=== PATIENT | female | born 1975 | race Caucasian/White ===

== ENCOUNTER 2023-03-11 22:47 | Emergency (ER) | payer BC, SELFPAY ==
[2023-03-11 22:48] VITALS: BP 148/95; PULSE 125; RESP 14; TEMP 36.4; O2SAT 100
[2023-03-11 22:52] LABS: Glucose Point of Care 373 mg/dl (65-105)
--- NOTE | 2023-03-11 22:54 | ECG_ITS ---
Measurements Intervals [place] Rate: 120 P: 64 SD: 153 QRS: 31 QRSD: 82 T: 51 QT: 321 QTc: 453 Interpretive Statements SINUS TACHYCARDIA BASELINE ARTIFACT- I, III, AVL ABNORMAL ECG NO PREVIOUS ECG AVAILABLE FOR COMPARISON Electronically Signed On 03-12-2023 6:52:35 CDT by Riky Smith D.O.
[2023-03-11 23:01] LABS: Basophils Absolute Auto 0.1 K/mm3 (0.0-0.1); Basophils Percent Auto 0.6 % (0.2-1.2); Eosinophils Absolute Auto 0.2 K/mm3 (0-0.3); Eosinophils Percent Auto 1.6 % (0-4.4); Hematocrit 41.6 % (37.0-47.0); Hemoglobin 14.4 g/dL (12.0-15.0); Immature Granulocyte Absolute 0.03 K/mm3 (0.00-0.031); Immature Granulocyte Percent A 0.3 % (0-0.5); Lymphocytes Absolute Auto 1.69 K/mm3 (0.9-3.2); Mean Corpuscular HGB Conc 34.6 g/dl (32-36); Mean Corpuscular Hemoglobin 29.6 pg (26-34); Mean Corpuscular Volume 85.4 fl (80-100); Mean Platelet Volume 10.2 fl (7.4-10.4); Monocytes Absolute Auto 0.5 K/mm3 (0.1-0.6); Monocytes Percent Auto 5.8 % (2.6-8.5); Neutrophils Absolute Auto 6.9 K/mm3 (1.3-6.7); Neutrophils Percent Auto 73.7 % (45.5-73.1); Platelet Count Result 185 k/mm3 (150-375); Red Blood Count 4.87 M/mm3 (4.2-5.4); Red Cell Distribution Width 11.7 % (11.5-14.5); White Blood Count 9.4 K/mm3 (4.5-10.0)
[2023-03-11 23:20] LABS: Alanine Aminotransferase 25 U/L (6-35); Albumin Level 4.7 g/dL (3.5-5.1); Alkaline Phosphatase 107 U/L (38-126); Anion Gap 13 mmol/L (8-16); Aspartate Amino Transferase 24 U/L (14-36); Bilirubin,Total 0.8 mg/dL (0.2-1.3); Blood Urea Nitrogen 17 mg/dL (7-17); Carbon Dioxide 19 mmol/L (22-30); Chloride 100 mmol/L (98-107); Estimated CRCL calculation 111 ml/min; Estimated Glomerular Filt Rate > 60; Glucose 384 mg/dL (65-110); Magnesium 1.9 mg/dL (1.6-2.3); Phosphorus 3.4 mg/dL (2.5-4.5); Potassium 3.8 mmol/L (3.4-5.0); Sodium 132 mmol/L (137-145)
[2023-03-11 23:21] LABS: Beta-Hydroxybutyrate/Acetoacetate 0.19 mmol/L (0.02-0.27)
[2023-03-11 23:51] VITALS: PULSE 123; RESP 15; O2SAT 100
[2023-03-12] VITALS (25 sets, daily range): BP systolic 95–137; BP diastolic 48–91; PULSE 91–121; RESP 12–30; TEMP 35.9; O2SAT 99–100
[2023-03-12 00:23] LABS: Glucose Point of Care 280 mg/dl (65-105)
[2023-03-12] MEDS: SODIUM CHLORIDE 0.9% IV 1,000 ML 999 ML IV CONT (00:39)
[2023-03-12] MEDS: INSULIN HUMAN REGULAR (*BKC) 100 UNITS/ML IV PUSH (00:46)
[2023-03-12] MEDS: POTASSIUM CHLORIDE 20 MEQ PACKET (FOR LIQUID) 40 MEQ PO (00:47)
--- NOTE | 2023-03-12 00:56 | ED.GENADULT ---
HPI - General Adult General Chief complaint: Recheck/Abnormal Lab/Rx Stated complaint: high blood sugar-out of medication Time Seen by Provider: 03/12/23 00:07 History of Present Illness HPI narrative: 47 year old female history of diabetes presented with hyperglycemia in the setting of running out of medications. Per patient, she has had trouble finding an appointment with her primary care provider to optimize her diabetes medications. She has been without her metformin for several days. She has been having increased thirs and urinary frequncy. Denied chest pain, shortness of breath, abdominal pain, dysuria, cough, sick contacts. Related Data Allergies Allergy/AdvReac Type Severity Reaction Status Date / Time No Known Allergies Allergy Unverified 05/07/15 13:40 Review of Systems Review of Systems: See HPI Exam Narrative: General: Alert, calm and cooperative, no acute distress, phonating, sitting comfortably during visit HEENT: Pupils equal round and reactive to light, extra ocular movements intact, no conjunctival injection, head atraumatic, neck supple without meningismus Cardiovascular: Regular rate and rhythm, no visible jugular venous distension Respiratory: Lungs clear to auscultation bilaterally, no wheezing/rales/rhonchi Abdominal: soft, non-tender, non-distended, no guarding, no rebound/peritoneal signs, no costovertebral tenderness to palpation Back: no midline tenderness to palpation, no step offs Extremities: No edema, palpable peripheral pulses, warm, well perfused, no tenderness to bilateral calves Neurological: Alert, moving all extremities symmetrically, ambulating without deficit Course Vital Signs Vital signs: Vital Signs Temperature 97.6 F 03/11/23 22:48 Pulse Rate 125 H 03/11/23 22:48 Respiratory Rate 14 03/11/23 22:48 Blood Pressure 148/95 H 03/11/23 22:48 Pulse Oximetry 100 03/11/23 22:48 Oxygen Delivery Room Air 03/11/23 22:48 Temperature 96.7 F L 03/12/23 00:30 Pulse Rate 95 03/12/23 03:45 Respiratory Rate 15 03/12/23 03:45 Blood Pressure 101/56 L 03/12/23 03:31 Pulse Oximetry 99 03/12/23 01:59 Oxygen Delivery Room Air 03/11/23 22:48 Medical Decision Making [facility] Narrative Medical decision making narrative: 47 year old female history of diabetes presented with hyperglycemia in the setting of running out of his diabetes medication. Physical exam benign, sitting in bed comfortably, abdomen soft and non tender, vitals stable. DKA considered, blood work and clincal presentation not consistent with this. History and exam suggestive of hyperglycemia. Patient given IV fluid hydration and insulin with improvement of symptoms. Blood work reviewed, noted to be unremarkable. Physical exam benign, vitals stable. The patient tolerated oral intake, is alert and oriented, speaking with clear speech, ambulated with steady gait, and has remained hemodynamically stable throughout the ED visit. Has close follow up with primary care provider. Metformin prescribed until she could see her primary care provider Areas of diagnostic uncertainty discussed and strict return precautions shared with patient; encouraged to return to the emergency department if symptoms returned or worsened. The patient is safe to be discharged with follow up, provided she abide by the verbalized and written instructions, to which the patient has expressed understanding. Vital Signs Vital Signs: Vital Signs Temperature 97.6 F 03/11/23 22:48 Pulse Rate 125 H 03/11/23 22:48 Respiratory Rate 14 03/11/23 22:48 Blood Pressure 148/95 H 03/11/23 22:48 Pulse Oximetry 100 03/11/23 22:48 Oxygen Delivery Room Air 03/11/23 22:48 Temperature 96.7 F L 03/12/23 00:30 Pulse Rate 95 03/12/23 03:45 Respiratory Rate 15 03/12/23 03:45 Blood Pressure 101/56 L 03/12/23 03:31 Pulse Oximetry 99 03/12/23 01:59 Oxygen Delivery Room Air 03/11/23 22:48 Lab Data 03/11/23 22:54
[2023-03-12] MEDS: LACTATED RINGERS 1,000 ML 999 ML (01:00)
[2023-03-12] MEDS: LACTATED RINGERS 1,000 ML 999 ML IV CONT (01:23)
[2023-03-12 01:33] LABS: Appearance Urine Clear (Clear); Bilirubin Urine Negative (Negative); Blood Urine Negative (Negative); Color Urine Yellow (Yellow); Glucose Urine UA 3+ mg/dL (Negative); Ketones Urine Trace mg/dL (Negative); Leukocyte Esterase Ur Negative LEU/UL (Negative); Nitrate Urine Negative (Negative); Protein Urine Negative (Negative); Urobilinogen Urine 0.2 mg/dL (<2.0); pH Urine 5.5 (5.0-9.0)
[2023-03-12 01:40] LABS: Glucose Point of Care 183 mg/dl (65-105)
[2023-03-12 01:43] LABS: Specific Grav Ur 1.048 (1.001-1.035)
[2023-03-12 01:44] LABS: Add Urine Microscopic? YES
[2023-03-12 03:16] LABS: Glucose Point of Care 138 mg/dl (65-105)
--- NOTE | 2023-03-18 19:39 | PC.NURSE ---
all fluids were stopped between 01:30-02:45
== END 2023-03-12 04:07 | disposition home or self-care (01) ==
PROVIDERS: Emergency Provider Emergency Medicine
DX: E11.65 Type 2 diabetes mellitus with hyperglycemia (principal); T38.3X6A Underdosing of insulin and oral hypoglycemic [antidiabetic] drugs, initial encounter; Z91.138 Patient's unintentional underdosing of medication regimen for other reason; Z79.84 Long term (current) use of oral hypoglycemic drugs; R00.0 Tachycardia, unspecified
CPT/HCPCS: 36415; 80053; 81001; 81025; 82010; 82948; 83735; 84100; 85025; 93005; 96361; 96374; 99284; A9270; J1815; J7030; J7120